=== PATIENT | female | born 1985 | race Caucasian/White ===

== ENCOUNTER 2019-12-13 22:06 | Emergency (ER) | payer MEDICAID ==
[~2019-12-13] VITALS: Ht 172.7 cm; Wt 80.0 kg
[2019-12-13] MEDS ORDERED: KEFLEX500 M1 PO (23:57)
[2019-12-13] MEDS ORDERED: BACTRIM DS1 TAB PO (23:57)
[2019-12-13] MEDS ORDERED: IBUPROFEN600 MG PO (23:58)
[2019-12-14 01:00] VITALS: BP 142/91
== END 2019-12-14 01:06 | disposition home or self-care (01) ==
LOC: ED 22:06
DX: L02.214 Cutaneous abscess of groin (principal); L02.01 Cutaneous abscess of face

== ENCOUNTER 2020-08-09 06:58 | Emergency (ER) | payer MEDICAID ==
[~2020-08-09] VITALS: Ht 172.7 cm; Wt 80.0 kg
[~2020-08-09 06:58] MED LIST: BACTRIM DS1 TAB PO; IBUPROFEN600 MG PO; KEFLEX500 M1 PO
[2020-08-09 07:10] VITALS: BP 134/79
[2020-08-09] MEDS ORDERED: GABAPENTIN100 MG PO (07:43)
[2020-08-09 08:47] LABS: URINE BILIRUBIN - DIPSTICK NEGATIVE (NEGATIVE); URINE BLOOD DIPSTICK NEGATIVE (NEGATIVE); URINE CLARITY CLEAR; URINE COLOR YELLOW; URINE GLUCOSE - DIPSTICK NEGATIVE (NEGATIVE); URINE KETONE NEGATIVE (NEGATIVE); URINE LEUK ESTERASE NEGATIVE (Negative); URINE NITRITE - DIPSTICK NEGATIVE (Negative); URINE PH 5.5 (4.5-8.0); URINE PROTEIN - DIPSTICK NEGATIVE (NEG-TRACE); URINE SPECIFIC GRAVITY 1.025; URINE UROBILINOGEN - DIPSTICK 0.2 E.U./dL (0.2)
== END 2020-08-09 11:24 | disposition home or self-care (01) ==
LOC: ED 06:58
PROVIDERS: Emergency Medicine
DX: J06.9 Acute upper respiratory infection, unspecified (principal); M54.9 Dorsalgia, unspecified; N83.209 Unspecified ovarian cyst, unspecified side; R53.82 Chronic fatigue, unspecified; M79.7 Fibromyalgia; F17.200 Nicotine dependence, unspecified, uncomplicated; Z20.822 Contact with and (suspected) exposure to COVID-19

== ENCOUNTER 2021-01-17 12:12 | Emergency (ER) | payer MEDICAID ==
[~2021-01-17] VITALS: Ht 172.7 cm; Wt 79.2 kg
[~2021-01-17 12:12] MED LIST changes: +GABAPENTIN100 MG PO
[2021-01-17] MEDS ORDERED: NEURONTIN300 MG PO (13:03)
[2021-01-17 13:50] VITALS: BP 163/67
== END 2021-01-17 13:50 | disposition home or self-care (01) ==
LOC: ED 12:12
DX: B34.9 Viral infection, unspecified (principal); F17.210 Nicotine dependence, cigarettes, uncomplicated; Z20.822 Contact with and (suspected) exposure to COVID-19

== ENCOUNTER 2021-04-06 10:24 | Emergency (ER) | payer MEDICAID ==
[~2021-04-06] VITALS: Ht 172.7 cm; Wt 81.0 kg
[~2021-04-06 10:24] MED LIST changes: +NEURONTIN300 MG PO
[2021-04-06 10:39] VITALS: BP 142/64
== END 2021-04-06 12:05 | disposition home or self-care (01) ==
LOC: ED 10:24
DX: S00.81XA Abrasion of other part of head, initial encounter (principal); S30.0XXA Contusion of lower back and pelvis, initial encounter; S40.811A Abrasion of right upper arm, initial encounter; S40.021A Contusion of right upper arm, initial encounter; S20.212A Contusion of left front wall of thorax, initial encounter; S40.022A Contusion of left upper arm, initial encounter; M79.7 Fibromyalgia; R53.82 Chronic fatigue, unspecified; F41.0 Panic disorder [episodic paroxysmal anxiety]; F17.210 Nicotine dependence, cigarettes, uncomplicated; Y04.2XXA Assault by strike against or bumped into by another person, initial encounter; Y92.009 Unspecified place in unspecified non-institutional (private) residence as the place of occurrence of the external cause

== ENCOUNTER 2021-09-21 12:46 | Emergency (ER) | payer MEDICAID ==
[~2021-09-21] VITALS: Ht 172.7 cm; Wt 81.0 kg
[2021-09-21 13:07] VITALS: BP 114/90
[2021-09-21 13:20] LABS: URINE BILIRUBIN - DIPSTICK NEGATIVE (NEGATIVE); URINE BLOOD DIPSTICK NEGATIVE (NEGATIVE); URINE COLOR YELLOW; URINE GLUCOSE - DIPSTICK NEGATIVE (NEGATIVE); URINE KETONE NEGATIVE (NEGATIVE); URINE LEUK ESTERASE NEGATIVE (NEGATIVE); URINE PH 5.5 (4.5-8.0); URINE PROTEIN - DIPSTICK NEGATIVE (NEG-TRACE); URINE SPECIFIC GRAVITY >=1.030; URINE UROBILINOGEN - DIPSTICK 0.2 E.U./dL (0.2)
[2021-09-21 13:21] LABS: URINE NITRITE - DIPSTICK NEGATIVE (Negative)
[2021-09-21 14:07] LABS: HEMATOCRIT 43.5 % (37.0-47.0); HEMOGLOBIN 14.5 g/dl (12.0-16.0); IMMATURE GRANULOCYTES 0.2 % (0.0-5.0); MEAN CELL VOLUME 88.1 fL CALC (80.0-100.0); MEAN CORPUSCULAR HGB 29.4 pG CALC (26.0-32.0); MEAN CORPUSCULAR HGB CONC 33.3 g/dL CAL (32.0-36.0); NEUT# 6.17 thou/uL (2.00-7.15); RED BLOOD COUNT 4.94 mill/uL (4.20-5.60); RED CELL DISTRI WIDTH 13.7 % (11.5-15.5)
[2021-09-21 14:22] LABS: ALBUMIN 3.9 g/dL (3.2-5.0); ALKALINE PHOSPHATASE 72 u/l (38-126); ANION GAP 7 (6-22 (CALC)); BILIRUBIN, TOTAL 0.2 mg/dL (0.0-1.4); BUN 10 mg/dL (7-17); BUN/CREATININE RATIO 16 (12-20 (CALC)); CARBON DIOXIDE 26 mmol/l (22-30); CHLORIDE 107 mmol/l (95-108); CREATININE 0.6 mg/dL (0.5-1.0); GFR FOR AFR.AMER. > 60 ML/MIN (>=60 (CALC)); GFR OTHER RACES > 60 ML/MIN (>=60 (CALC)); POTASSIUM 3.7 mmol/l (3.5-5.1); SGOT/AST 20 u/l (14-36); SODIUM 136 mmol/l (137-146); TOTAL PROTEIN 6.7 g/dL (6.3-8.2)
[2021-09-21 14:55] VITALS: BP 114/90
== END 2021-09-21 15:11 | disposition home or self-care (01) ==
LOC: ED 12:46
PROVIDERS: Nurse Practitioner
DX: O20.0 Threatened abortion (principal); O99.340 Other mental disorders complicating pregnancy, unspecified trimester; F41.9 Anxiety disorder, unspecified; O26.899 Other specified pregnancy related conditions, unspecified trimester; R53.82 Chronic fatigue, unspecified; Z3A.00 Weeks of gestation of pregnancy not specified; Z67.11 Type A blood, Rh negative
CPT/HCPCS: J2790

== ENCOUNTER 2021-11-06 12:39 | Emergency (ER) | payer MEDICAID ==
[~2021-11-06] VITALS: Ht 172.7 cm; Wt 78.0 kg
[2021-11-06 13:00] VITALS: BP 126/87
[2021-11-06 13:20] LABS: HEMATOCRIT 40.6 % (37.0-47.0); HEMOGLOBIN 14.1 g/dl (12.0-16.0); IMMATURE GRANULOCYTES 0.2 % (0.0-5.0); MEAN CELL VOLUME 85.8 fL CALC (80.0-100.0); MEAN CORPUSCULAR HGB 29.8 pG CALC (26.0-32.0); MEAN CORPUSCULAR HGB CONC 34.7 g/dL CAL (32.0-36.0); NEUT# 7.34 thou/uL (2.00-7.15); RED BLOOD COUNT 4.73 mill/uL (4.20-5.60); RED CELL DISTRI WIDTH 13.7 % (11.5-15.5)
[2021-11-06 13:30] VITALS: BP 126/80
[2021-11-06 13:42] LABS: ALBUMIN 3.8 g/dL (3.2-5.0); ALKALINE PHOSPHATASE 69 u/l (38-126); ANION GAP 9 (6-22 (CALC)); BUN 11 mg/dL (7-17); BUN/CREATININE RATIO 22 (12-20 (CALC)); CARBON DIOXIDE 23 mmol/l (22-30); CHLORIDE 109 mmol/l (95-108); CREATININE 0.5 mg/dL (0.5-1.0); GFR FOR AFR.AMER. > 60 ML/MIN (>=60 (CALC)); GFR OTHER RACES > 60 ML/MIN (>=60 (CALC)); POTASSIUM 3.9 mmol/l (3.5-5.1); SGOT/AST 23 u/l (14-36); SODIUM 136 mmol/l (137-146); TOTAL PROTEIN 6.8 g/dL (6.3-8.2)
[2021-11-06 13:44] LABS: BILIRUBIN, TOTAL 0.1 mg/dL (0.0-1.4)
[2021-11-06 15:21] LABS: URINE BILIRUBIN - DIPSTICK NEGATIVE (NEGATIVE); URINE BLOOD DIPSTICK NEGATIVE (NEGATIVE); URINE COLOR YELLOW; URINE GLUCOSE - DIPSTICK NEGATIVE (NEGATIVE); URINE KETONE NEGATIVE (NEGATIVE); URINE LEUK ESTERASE NEGATIVE (NEGATIVE); URINE PH 5.5 (4.5-8.0); URINE PROTEIN - DIPSTICK NEGATIVE (NEG-TRACE); URINE SPECIFIC GRAVITY 1.025; URINE UROBILINOGEN - DIPSTICK 0.2 E.U./dL (0.2)
[2021-11-06 15:22] LABS: URINE NITRITE - DIPSTICK NEGATIVE (Negative)
[2021-11-06 15:52] VITALS: BP 126/80
== END 2021-11-06 15:58 | disposition home or self-care (01) ==
LOC: ED 12:39
PROVIDERS: Family Medicine
DX: O20.0 Threatened abortion (principal); O99.330 Smoking (tobacco) complicating pregnancy, unspecified trimester; F17.210 Nicotine dependence, cigarettes, uncomplicated; O99.340 Other mental disorders complicating pregnancy, unspecified trimester; F41.0 Panic disorder [episodic paroxysmal anxiety]; O26.899 Other specified pregnancy related conditions, unspecified trimester; R53.82 Chronic fatigue, unspecified; Z3A.00 Weeks of gestation of pregnancy not specified

== ENCOUNTER 2022-04-07 17:43 | Emergency (ER) | payer MEDICAID ==
[~2022-04-07] VITALS: Ht 172.7 cm; Wt 84.8 kg
[2022-04-07 18:35] LABS: URINE BILIRUBIN - DIPSTICK NEGATIVE (NEGATIVE); URINE BLOOD DIPSTICK NEGATIVE (NEGATIVE); URINE COLOR YELLOW; URINE GLUCOSE - DIPSTICK NEGATIVE (NEGATIVE); URINE KETONE NEGATIVE (NEGATIVE); URINE LEUK ESTERASE NEGATIVE (NEGATIVE); URINE PROTEIN - DIPSTICK NEGATIVE (NEG-TRACE); URINE SPECIFIC GRAVITY <=1.005; URINE UROBILINOGEN - DIPSTICK 0.2 E.U./dL (0.2)
[2022-04-07 18:40] LABS: URINE NITRITE - DIPSTICK NEGATIVE (Negative)
[2022-04-07 20:25] LABS: BASO% 0.4 % (0-3); EOS% 1.3 % (0-8); HEMATOCRIT 41.8 % (37.0-47.0); HEMOGLOBIN 14.2 g/dl (12.0-16.0); IMMATURE GRANULOCYTES 0.1 % (0.0-5.0); LYMPH% 35.9 % (15-41); MEAN CELL VOLUME 87.6 fL CALC (80.0-100.0); MEAN CORPUSCULAR HGB 29.8 pG CALC (26.0-32.0); MONO% 8.6 % (2-13); NEUT# 6.24 thou/uL (2.00-7.15); NEUT% 53.7 % (42-76); RED BLOOD COUNT 4.77 mill/uL (4.20-5.60); RED CELL DISTRI WIDTH 12.3 % (11.5-15.5)
[2022-04-07 20:40] LABS: ALBUMIN 4.1 g/dL (3.2-5.0); ALKALINE PHOSPHATASE 60 u/l (38-126); ANION GAP 9 (6-22 (CALC)); BILIRUBIN, TOTAL 0.1 mg/dL (0.02-1.3); BUN 7 mg/dL (7-17); BUN/CREATININE RATIO 11 (12-20 (CALC)); CARBON DIOXIDE 25 mmol/l (22-30); CHLORIDE 106 mmol/l (95-108); CREATININE 0.6 mg/dL (0.5-1.0); GFR FOR AFR.AMER. > 60 ML/MIN (>=60 (CALC)); GFR OTHER RACES > 60 ML/MIN (>=60 (CALC)); POTASSIUM 3.8 mmol/l (3.5-5.1); SGOT/AST 21 u/l (14-36); SODIUM 136 mmol/l (137-146); TOTAL PROTEIN 6.9 g/dL (6.3-8.2)
[2022-04-07 20:57] LABS: BETA-HCG, QUANT(RESULT NUMBER) 14614 mIU/mL
[2022-04-07 22:31] VITALS: BP 139/90
== END 2022-04-07 22:36 | disposition home or self-care (01) ==
LOC: ED 17:43 → LWOBS 19:01 → ED 22:36
PROVIDERS: Emergency Medicine; Family Medicine
DX: O26.891 Other specified pregnancy related conditions, first trimester (principal); R10.2 Pelvic and perineal pain; O99.331 Smoking (tobacco) complicating pregnancy, first trimester; F17.290 Nicotine dependence, other tobacco product, uncomplicated; Z3A.01 Less than 8 weeks gestation of pregnancy

== ENCOUNTER 2023-03-26 21:02 | Emergency (ER) | payer MEDICAID ==
[~2023-03-26] VITALS: Ht 162.6 cm; Wt 78.0 kg
[~2023-03-26 21:02] MED LIST changes: +AMOX/K CLAV875 M1 PO; +NAPROXEN500 MG PO; +NEURONTIN800 MG PO; +SUDAFED 12HR120 MG PO
[2023-03-26 21:36] VITALS: BP 112/71
[2023-03-26 22:10] LABS: BASO% 0.3 % (0-3); EOS% 0.9 % (0-8); HEMOGLOBIN 12.7 g/dl (12.0-16.0); IMMATURE GRANULOCYTES 0.1 % (0.0-5.0); LYMPH% 25.3 % (15-41); MEAN CELL VOLUME 86.4 fL CALC (80.0-100.0); MEAN CORPUSCULAR HGB 29.7 pG CALC (26.0-32.0); MEAN CORPUSCULAR HGB CONC 34.3 g/dL CAL (32.0-36.0); MONO% 7.1 % (2-13); NEUT# 9.88 thou/uL (2.00-7.15); NEUT% 66.3 % (42-76); RED BLOOD COUNT 4.28 mill/uL (4.20-5.60); RED CELL DISTRI WIDTH 14.3 % (11.5-15.5)
[2023-03-26] MEDS ORDERED: PRENATA3 PO (22:11)
[2023-03-26] MEDS ORDERED: PROGESTERONE (22:11)
[2023-03-26 22:18] LABS: ALBUMIN 3.7 g/dL (3.2-5.0); ALKALINE PHOSPHATASE 60 u/l (38-126); ANION GAP 11 (6-22 (CALC)); BUN 10 mg/dL (7-17); BUN/CREATININE RATIO 22 (12-20 (CALC)); CARBON DIOXIDE 21 mmol/l (22-30); CHLORIDE 108 mmol/l (95-108); CREATININE 0.5 mg/dL (0.5-1.0); GFR FOR AFR.AMER. > 60 ML/MIN (>=60 (CALC)); GFR OTHER RACES > 60 ML/MIN (>=60 (CALC)); POTASSIUM 3.3 mmol/l (3.5-5.1); SGOT/AST 33 u/l (14-36); SODIUM 137 mmol/l (137-146); TOTAL PROTEIN 6.4 g/dL (6.3-8.2)
[2023-03-26 22:27] LABS: BILIRUBIN, TOTAL 0.2 mg/dL (0.02-1.3)
[2023-03-27 00:40] VITALS: BP 112/71
== END 2023-03-27 00:55 | disposition home or self-care (01) ==
LOC: ED 21:02
PROVIDERS: Emergency Medicine
DX: O20.0 Threatened abortion (principal); O09.521 Supervision of elderly multigravida, first trimester; Z3A.09 9 weeks gestation of pregnancy
CPT/HCPCS: J2790

== ENCOUNTER 2023-11-24 12:28 | Emergency (ER) | payer MEDICAID ==
[~2023-11-24] VITALS: Ht 162.6 cm; Wt 72.5 kg
[~2023-11-24 12:28] MED LIST changes: +PRENATA3 PO; +PROGESTERONE
[2023-11-24] MEDS ORDERED: DIFLUCAN150 MG PO (13:09)
[2023-11-24 13:11] VITALS: BP 113/65
== END 2023-11-24 13:18 | disposition home or self-care (01) ==
LOC: ED 12:28
DX: O98.83 Other maternal infectious and parasitic diseases complicating the puerperium (principal); B37.2 Candidiasis of skin and nail